=== PATIENT | female | born 1975 | race Caucasian/White ===

== ENCOUNTER 2018-01-22 06:31 | Inpatient (IN) | payer MEDICAID ==
[~2018-01-22] VITALS: Ht 170.2 cm; Wt 72.0 kg
[~2018-01-22 06:31] MED LIST: CHOL400D3 PO; IODI1GRA PO; PREN1TAB60 PO
[2018-01-22] MEDS ORDERED: OXYTOCIN 30U/ 0.9% NaCL 500ML 500 ML IV SCH (06:34)
[2018-01-22 06:45] VITALS: BP 108/68
[2018-01-22] MEDS ORDERED: LACTATED RINGERS 1,000 ML IV SCH ×2 (06:45→08:48)
[2018-01-22] MEDS ORDERED: SODIUM CITRATE/CITRIC ACID 30 ML UDC ONE (06:49)
[2018-01-22] MEDS ORDERED: METOCLOPRAMIDE 5 MG/ML, 2ML ONE (06:49)
[2018-01-22] MEDS ORDERED: OXYTOCIN 30U/ 0.9% NaCL 500ML 500 ML ONE (06:50)
[2018-01-22] MEDS ORDERED: METOCLOPRAMIDE 5 MG/ML, 2ML IV ONE (07:00)
[2018-01-22] MEDS ORDERED: SODIUM CITRATE/CITRIC ACID 30 ML UDC PO ONE (07:00)
[2018-01-22] MEDS ORDERED: LACTATED RINGERS 1,000 ML IVBOLUS ONE (07:00)
[2018-01-22 07:11] LABS: BASOPHILS # (AUTO) 0.02 x10^3/uL (0-0.1); BASOPHILS % (AUTO) 0 % (0-1); EOSINOPHILS # (AUTO) 0.07 x10^3/uL (0-0.4); EOSINOPHILS % (AUTO) 1 % (1-7); LYMPHOCYTES # (AUTO) 1.54 x10^3/uL (1-3.4); LYMPHOCYTES % (AUTO) 24 % (22-44); MD NO; MEAN CORPUSCULAR HEMOGLOBIN 32.1 pg (27.0-34.8); MEAN CORPUSCULAR HGB CONC 33.6 g/dL (32.4-35.8); MEAN CORPUSCULAR VOLUME 95.6 fL (80-100); MEAN PLATELET VOLUME 7.5 fL (7.4-10.4); MONOCYTES # (AUTO) 0.56 x10^3/uL (0.2-0.8); MONOCYTES % (AUTO) 9 % (2-9); NEUTROPHILS # (AUTO) 4.19 x10^3/uL (1.8-6.8); NEUTROPHILS % (AUTO) 66 % (42-75); PLATELET COUNT 244 x10^3/uL (130-400); RED BLOOD COUNT 3.64 x10^6/uL (3.82-5.3); RED CELL DISTRIBUTION WIDTH 13.2 % (9.6-15.2)
[2018-01-22] MEDS ORDERED: PHENYLEPHRINE 10 MG/ML ONE (07:18)
[2018-01-22] MEDS ORDERED: ONDANSETRON 2MG/ML, 2ML ONE (07:18)
[2018-01-22] MEDS ORDERED: OXYTOCIN 10 UNITS/ML, 1ML ONE (07:18)
[2018-01-22] MEDS ORDERED: EPHEDRINE 50 MG/ML, 1ML ONE (07:18)
[2018-01-22] MEDS ORDERED: CEFAZOLIN 1,000 MG ONE (07:18)
[2018-01-22] MEDS ORDERED: DEXAMETHASONE 4 MG/ML, 1ML ONE (07:18)
[2018-01-22] MEDS ORDERED: FENTANYL PF 100 MCG/2ML ONE (07:18)
[2018-01-22] MEDS ORDERED: KETOROLAC 30 MG/1 ML ONE (07:18)
[2018-01-22] MEDS: LACTATED RINGERS 1,000 ML IV SCH ×4 (07:21→16:48)
[2018-01-22] MEDS ORDERED: MIDAZOLAM 1 MG/ML, 2ML IV PRN (07:30)
[2018-01-22] MEDS ORDERED: HYDROcodone/APAP 7.5-325MG/15ML UDC PO PRN (07:30)
[2018-01-22] MEDS ORDERED: LABETALOL 5MG/ML, 20ML IV PRN (07:30)
[2018-01-22] MEDS ORDERED: hydrALAzine 20 MG/ML, 1ML IV PRN (07:30)
[2018-01-22] MEDS ORDERED: HYDROmorphone 1 MG/ML, 1ML IV PRN (07:30)
[2018-01-22] MEDS ORDERED: OXYcodone 5 MG/5 ML ORAL.SOL UDC PO PRN (07:30)
[2018-01-22] MEDS ORDERED: MEPERIDINE/PF 25MG/0.5ML IVPush PRN (07:30)
[2018-01-22] MEDS ORDERED: ONDANSETRON 2MG/ML, 2ML IVPush PRN (07:30)
[2018-01-22] MEDS ORDERED: ALBUTEROL SULFATE 2.5 MG/3 ML NPPB PRN (07:30)
[2018-01-22] MEDS ORDERED: FENTANYL PF 100 MCG/2ML IV PRN (07:30)
[2018-01-22] MEDS ORDERED: PROMETHAZINE 25 MG/ML, 1ML IV PRN (07:30)
[2018-01-22] MEDS ORDERED: EPHEDRINE 50 MG/ML, 1ML IVPush PRN (07:30)
[2018-01-22] MEDS: KETOROLAC 30 MG/1 ML IV SCH ×3 (08:30→20:30)
[2018-01-22] MEDS: OXYTOCIN 30U/ 0.9% NaCL 500ML 500 ML IV SCH ×2 (08:48→18:48)
[2018-01-22] MEDS ORDERED: CALCIUM CARBONATE 500 MG TAB.CHEW PO PRN (09:00)
[2018-01-22] MEDS ORDERED: GLYCERIN ADULT SUPP PR PRN (09:00)
[2018-01-22] MEDS ORDERED: DIPH,PERTUSS(ACELL),TET VAC/PF NC IM-VACC PRN (09:00)
[2018-01-22] MEDS ORDERED: CARBOPROST TROMETHAMINE 250 MCG/ML, 1ML IM PRN (09:00)
[2018-01-22] MEDS ORDERED: SIMETHICONE 80 MG CHEW TAB PO PRN (09:00)
[2018-01-22] MEDS ORDERED: OXYcodone/APAP 5/325MG TABLET PO PRN ×2 (09:00)
[2018-01-22] MEDS ORDERED: METHYLERGONOVINE 0.2 MG/ML IM PRN (09:00)
[2018-01-22] MEDS ORDERED: ONDANSETRON 2MG/ML, 2ML IV PRN (09:00)
[2018-01-22] MEDS ORDERED: IBUPROFEN 600 MG TABLET PO PRN (09:00)
[2018-01-22] MEDS ORDERED: METOCLOPRAMIDE 5 MG/ML, 2ML IV PRN (09:00)
[2018-01-22] MEDS ORDERED: MEASLES,MUMPS&RUBELLA VACC/PF 0.5 ML SQ-VACC PRN (09:00)
[2018-01-22] MEDS: PRENATAL VIT/IRON/FA 1 EACH TABLET PO SCH (09:00)
[2018-01-22] MEDS ORDERED: MISOPROSTOL 200 MCG TABLET PO PRN (09:00)
[2018-01-22] MEDS ORDERED: BISACODYL 10 MG SUPP PR PRN (09:00)
[2018-01-22] MEDS ORDERED: ACETAMINOPHEN 325 MG TABLET PO PRN ×2 (09:00)
[2018-01-22 16:15] VITALS: BP 108/69
[2018-01-22 16:48] LABS: BASOPHILS # (AUTO) 0.02 x10^3/uL (0-0.1); BASOPHILS % (AUTO) 0 % (0-1); EOSINOPHILS # (AUTO) 0.24 x10^3/uL (0-0.4); EOSINOPHILS % (AUTO) 2 % (1-7); LYMPHOCYTES # (AUTO) 1.39 x10^3/uL (1-3.4); LYMPHOCYTES % (AUTO) 11 % (22-44); MD NO; MEAN CORPUSCULAR HGB CONC 34.3 g/dL (32.4-35.8); MEAN CORPUSCULAR VOLUME 96.4 fL (80-100); MEAN PLATELET VOLUME 7.6 fL (7.4-10.4); MONOCYTES # (AUTO) 0.66 x10^3/uL (0.2-0.8); MONOCYTES % (AUTO) 5 % (2-9); NEUTROPHILS % (AUTO) 82 % (42-75); PLATELET COUNT 196 x10^3/uL (130-400); RED BLOOD COUNT 3.16 x10^6/uL (3.82-5.3); RED CELL DISTRIBUTION WIDTH 13.7 % (9.6-15.2)
[2018-01-22 20:30] VITALS: BP 107/70
[2018-01-23] MEDS: LACTATED RINGERS 1,000 ML IV SCH ×3 (00:48→16:48)
[2018-01-23 02:00] VITALS: BP 127/61
[2018-01-23] MEDS: KETOROLAC 30 MG/1 ML IV SCH ×4 (02:23→21:14)
[2018-01-23] MEDS: OXYTOCIN 30U/ 0.9% NaCL 500ML 500 ML IV SCH ×2 (04:48→14:48)
[2018-01-23 05:00] VITALS: BP 99/62
[2018-01-23 08:38] VITALS: BP 107/71
[2018-01-23] MEDS: DOCUSATE 100 MG CAPSULE PO PRN ×2 (08:49→21:13)
[2018-01-23] MEDS: PRENATAL VIT/IRON/FA 1 EACH TABLET PO SCH (08:49)
[2018-01-23 20:15] VITALS: BP 104/63
[2018-01-24] MEDS: OXYTOCIN 30U/ 0.9% NaCL 500ML 500 ML IV SCH ×2 (00:48→00:55)
[2018-01-24] MEDS: LACTATED RINGERS 1,000 ML IV SCH ×2 (00:48→00:56)
[2018-01-24] MEDS: KETOROLAC 30 MG/1 ML IV SCH (03:23)
[2018-01-24 09:04] VITALS: BP 111/74
[2018-01-24] MEDS: PRENATAL VIT/IRON/FA 1 EACH TABLET PO SCH (09:04)
[2018-01-24] MEDS: DOCUSATE 100 MG CAPSULE PO PRN (10:39)
[2018-01-24 19:20] VITALS: BP 99/63
[2018-01-25] MEDS: OXYTOCIN 30U/ 0.9% NaCL 500ML 500 ML IV SCH (06:48)
[2018-01-25] MEDS: DOCUSATE 100 MG CAPSULE PO PRN (08:00)
[2018-01-25] MEDS: PRENATAL VIT/IRON/FA 1 EACH TABLET PO SCH (08:00)
[2018-01-25 08:15] VITALS: BP 108/69
[2018-01-25] MEDS: LACTATED RINGERS 1,000 ML IV SCH (08:48)
[2018-01-25] MEDS ORDERED: IBUP-1222 PO (11:04)
[2018-01-25] MEDS ORDERED: OXYC-302 PO (11:04)
== END 2018-01-25 15:43 | disposition home or self-care (01) | DRG 766 ==
LOC: LDIP 06:31 → 2NW 10:48
PROVIDERS: ADMIT Obstetrics & Gynecology; ATTEND Obstetrics & Gynecology
PROC: 10D00Z1 Extraction of Products of Conception, Low, Open Approach (ICD-10-PCS; principal; 2018-01-22)
DX: O34.211 Maternal care for low transverse scar from previous cesarean delivery (principal); E03.9 Hypothyroidism, unspecified; Z37.0 Single live birth; Z3A.39 39 weeks gestation of pregnancy; O99.284 Endocrine, nutritional and metabolic diseases complicating childbirth
CPT/HCPCS: 36415; 85025; 86850; 86900; J0690; J1100; J1885; J2405; J3010; J2370; J2590; J2765; J7120